=== PATIENT | male | born 1955 | race African-American/Black ===

== ENCOUNTER 2024-01-10 10:03 | Emergency (ER) | payer OTHER ==
[~2024-01-10] VITALS: Ht 172.7 cm; Wt 116.0 kg
[2024-01-10 10:06] VITALS: O2SAT 99
[2024-01-10 10:44] LABS: BASOPHILS % 0.3 % (0.0-2.0); EOSINOPHILS % 0.7 % (0.0-5.0); HEMATOCRIT. 48.3 % (42.0-52.0); HEMOGLOBIN. 16.2 g/dL (14.0-18.0); LYMPHOCYTES % 12.3 % (20.0-50.0); MEAN CORPUSCULAR HGB CONC 33.5 g/dL (31.0-37.0); MEAN CORPUSCULAR VOLUME 92.5 fL (80.0-94.0); MEAN PLATELET VOLUME 8.8 fl (7.4-10.4); MONOCYTES % 7.8 % (2.0-8.0); NEUTROPHILS % 78.9 % (40.0-76.0); PLATELET 134 x1000/uL (130-400); RED BLOOD CELL COUNT 5.22 mill/uL (4.7-6.1); RED CELL DISTRIBUTION WIDTH 14.4 % (11.6-14.6); WHITE BLOOD COUNT 10.7 x1000/uL (4.5-11.0)
[2024-01-10] MEDS: ONDANSETRON HCL 4MG/2ML INJ IV STA (10:44)
[2024-01-10 10:54] LABS: PROTHROMBIN TIME 11.6 sec (9.6-11.0)
[2024-01-10 10:59] LABS: CHLORIDE 108 mEq/L (98-107); POTASSIUM 4.3 mEq/L (3.5-5.1); SODIUM 139 mEq/L (136-145)
[2024-01-10 11:00] LABS: CARBON DIOXIDE 22 mEq/L (21-32)
[2024-01-10 11:01] LABS: CALCIUM 9.4 mg/dL (8.7-10.4)
[2024-01-10 11:05] LABS: CREATININE 1.7 mg/dL (0.6-1.3); GLUCOSE 126 mg/dL (70-105)
[2024-01-10 11:06] LABS: TROPONIN I HIGH SENSITIVITY 8 ng/L (3.0-53); UREA NITROGEN BLOOD 8 mg/dL (9-23)
[2024-01-10 11:31] VITALS: BP 125/53; PULSE 83; RESP 16; TEMP 36.78072; O2SAT 98
== END 2024-01-10 11:42 | disposition home or self-care (01) ==
LOC: ER 10:03
DX: R11.2 Nausea with vomiting, unspecified (principal); R55 Syncope and collapse; E11.9 Type 2 diabetes mellitus without complications
CPT/HCPCS: 99284; 96374; 80048; 85025; 85610; 84484; 36415; 93005; J2405